=== PATIENT | female | born 1940 | race Caucasian/White ===

== ENCOUNTER → 2023-09-13 11:13 | Outpatient (REF) | payer MEDICARE, BC, SELFPAY | LOC: WDC 11:13 | PROVIDERS: ATTENDING PHYSICIAN Family Medicine | DX: Z12.31 Encounter for screening mammogram for malignant neoplasm of breast (principal) | CPT/HCPCS: 77063; 77067 ==

== ENCOUNTER → 2023-09-17 09:44 | Outpatient (REF) | payer MEDICARE, BC, SELFPAY | LOC: RAD 09:44 | PROVIDERS: ATTENDING PHYSICIAN Family Medicine | DX: R74.8 Abnormal levels of other serum enzymes (principal) | CPT/HCPCS: 76700 ==

== ENCOUNTER → 2023-11-23 13:53 | Outpatient (REF) | payer MEDICARE, BC, SELFPAY | LOC: RAD 13:53 | PROVIDERS: ATTENDING PHYSICIAN Orthopaedic Surgery; FAMILY PHYSICIAN Family Medicine | DX: I97.89 Other postprocedural complications and disorders of the circulatory system, not elsewhere classified (principal); I82.401 Acute embolism and thrombosis of unspecified deep veins of right lower extremity; R60.0 Localized edema | CPT/HCPCS: 93971 ==

== ENCOUNTER 2024-04-16 10:18 | Outpatient (RCR) | payer MEDICARE, BC, SELFPAY | END 2024-04-16 23:59 | disposition home or self-care (01) | LOC: RPT 10:18 | PROVIDERS: ATTENDING PHYSICIAN Family Medicine | DX: I89.0 Lymphedema, not elsewhere classified (principal); Z73.6 Limitation of activities due to disability | CPT/HCPCS: 97163; 97535; 97760 ==

== ENCOUNTER 2024-06-06 08:50 | Outpatient (RCR) | payer MEDICARE, BC, SELFPAY | END 2024-06-06 23:59 | disposition home or self-care (01) | LOC: RPT 08:50 | PROVIDERS: ATTENDING PHYSICIAN Family Medicine | DX: I89.0 Lymphedema, not elsewhere classified (principal); Z73.6 Limitation of activities due to disability | CPT/HCPCS: 97140; 97535; 97760 ==

== ENCOUNTER 2024-07-04 10:45 | Outpatient (RCR) | payer MEDICARE, BC, SELFPAY | END 2024-07-04 23:59 | disposition home or self-care (01) | LOC: RPT 10:45 | PROVIDERS: ATTENDING PHYSICIAN Family Medicine | DX: I89.0 Lymphedema, not elsewhere classified (principal); Z73.6 Limitation of activities due to disability | CPT/HCPCS: 97140; 97535 ==

== ENCOUNTER 2024-08-08 12:59 | Outpatient (RCR) | payer MEDICARE, BC, SELFPAY | END 2024-08-11 07:28 | disposition home or self-care (01) | LOC: RPT 12:59 | PROVIDERS: ATTENDING PHYSICIAN Family Medicine | DX: I89.0 Lymphedema, not elsewhere classified (principal); Z73.6 Limitation of activities due to disability | CPT/HCPCS: 97140; 97535 ==

== ENCOUNTER → 2024-10-24 14:46 | Outpatient (REF) | payer MEDICARE, BC, SELFPAY | LOC: WDC 14:46 | PROVIDERS: ATTENDING PHYSICIAN Family Medicine | DX: Z12.31 Encounter for screening mammogram for malignant neoplasm of breast (principal) | CPT/HCPCS: 77063; 77067 ==

== ENCOUNTER → 2024-11-19 11:21 | Outpatient (REF) | payer MEDICARE, BC, SELFPAY | LOC: RAD 11:21 | PROVIDERS: ATTENDING PHYSICIAN Internal Medicine Rheumatology; FAMILY PHYSICIAN Family Medicine | DX: M06.4 Inflammatory polyarthropathy (principal); M15.9 Polyosteoarthritis, unspecified | CPT/HCPCS: 73110; 73130 ==

== ENCOUNTER → 2024-11-27 10:18 | Outpatient (REF) | payer MEDICARE, BC, SELFPAY | LOC: RAD 10:18 | PROVIDERS: ATTENDING PHYSICIAN Internal Medicine Rheumatology; FAMILY PHYSICIAN Family Medicine | DX: M81.0 Age-related osteoporosis without current pathological fracture (principal) | CPT/HCPCS: 77080; 77081 ==

== ENCOUNTER 2024-12-05 16:22 | Inpatient (IN) | payer MEDICARE, BC, SELFPAY ==
[2024-12-05 11:13] VITALS: BP 175/75
[2024-12-05 11:59] LABS: Hematocrit 38.6 % (37.0-47.0); Hemoglobin 13.2 g/dL (12.0-16.0); Mean Corp Hgb Conc. 34.2 g/dL (33.0-37.0); Mean Corpuscular Volume 92.1 fL (81.0-99.0); Nucleated Red Blood Cells % 0 %; Platelet Count 222 10^3/uL (130-400); Red Cell Dist. Width 14.1 % (11.5-14.5)
[2024-12-05 12:11] LABS: ALT (SGPT) 22 U/L (0-35); AST (SGOT) 37 U/L (14-36); Albumin 4.1 g/dl (3.5-5.0); Alkaline Phosphatase 113 U/L (38-126); Blood Urea Nitrogen 16 mg/dl (7-17); Calcium 9.1 mg/dl (8.4-10.2); Carbon Dioxide 27 mmol/L (22-30); Chloride 105 mmol/L (98-107); Glucose 102 mg/dl (70-99); Potassium 4.7 mmol/L (3.5-5.1); Sodium 138 mmol/L (135-145); Total Protein 6.7 g/dl (6.3-8.2); eGFR > 60.00
--- NOTE | 2024-12-05 12:47 | ED.GENMED ---
History of Present Illness
General
Chief Complaint: Skin Problem
Source: patient
Exam Limitations: none
Time Seen by Provider: 12/05/24 12:26
Nursing documentation reviewed up to this point in time: agreed with
History of Present Illness
History of Present Illness:
Patient as documented is an 84-year-old female with past medical history of chronic lymphedema, reflux presents to the ER for evaluation. She has had cellulitis to the right lower extremity for the past week and has been taking Keflex without
relief she was sent by her family doctor.
She denies any fever chills she does complain of bilateral chronic lymphedema and swelling in both legs.
Past History
Past History
ED Past Medical History: Other (Fibermyalgia)
ED Past Surgical History: Gynecological (Hysterectomy)
Social History
Tobacco: Non-smoker
Alcohol: None
Personal:
Living: with family
Phy Exam
General Physical Exam
General Presentation: no apparent distress
General age: appears stated age
General Skin: warm and dry
General Habitus: normal
General Mental: alert
General Hydration: appears well hydrated
Cardiovascular Exam
Cardiovascular Exam: regular rate/rhythm, no murmur and normal peripheral pulses
Pulmonary Exam
Pulmonary Exam: lungs clear and no respiratory distress
Musculoskeletal Exam
Musculoskeletal Exam: full ROM and other (rle with strong pulses + circumferential erythema to right lower leg with swelling there is redness that extends up to the medial /proximal thigh)
Skin Exam
Skin Exam: normal color and warm/dry
Psychiatric Exam
Psychiatric Exam: normal mood/affect
Course
Orders/Labs/Results
Orders:
Orders
12/05/24 11:43
Complete Blood Count/With Diff Urgent
Comprehensive Metabolic Panel Urgent
12/05/24 12:49
Venous Doppler Lwr Ext Bilat [US Periph Venous LOWER Ext Adalid] Urgent
Comment:
Reason For Exam: chronic edema right leg cellulitis
12/05/24 13:03
Lactic Acid Q4H
Comment: CANCEL 2nd LACTIC ACID IF 1st LACTIC ACID IS LESS THAN 2
Blood Culture Q30M
ANALI Source: Blood/Venous
Specimen Description:
Blood Culture Q30M
ANALI Source: Blood/Venous
Specimen Description:
12/05/24 Dinner
Regular
At Your Request: Full Participation
Does patient need a safe tray?: No
12/05/24 16:01
Admit/Transfer Patient As Directed
Co-Sign Provider:
Level of Care: Inpatient admission
Assign to:: Medical/Surgical
Physician / Group: Hospitalist
Diagnosis: Cellulitis
Reason for Hospitalization: Cellulitis
Expected length of stay greater than two midnights?: Yes
ELOS- Estimated Length of Stay in days: 3
I certify the patient meets the requirements for IP care: Yes
PRN Pain Medication Management As Directed
May give lesser potent ordered pain med per pt: Yes
preference::
Protocol:: Medication orders for pain may be administered in a
manner that supports deferring to patient preference
when the pt is:
- Requesting an ordered lesser potent pain medication.
Least to most potent pain medications are defined
as: acetaminophen < NSAID < tramadol < opioids
(morphine, oxycodone, hydromorphone).
- Requesting a lesser dose of the same medication IF
ORDERED.
- Requesting a less intrusive route of administration
if both routes are prescribed by the provider (PO <
IV).
12/05/24 16:02
Code Status As Directed
Resuscitation Status: Full Code
12/05/24 17:30
Acetaminophen [Tylenol] 650 mg PO Q4HPRN PRN
Bisacodyl [Dulcolax] 10 mg RECTAL [id number] PRN
Docusate W/Senna [Senokot-S] 1 tablet PO BIDPRN PRN
Polyethylene Glycol Powder [Miralax] 17 grams PO DAILYPRN PRN
Vancomycin [Vancocin] 1,500 mg 0.9% Sodium Chloride 500 ml [Nss] 500 ml IV NOW
12/05/24 17:30
Activity As Directed
Activity Level: With Assistance
Pneumatic Compression Sleeves As Directed
Type: Knee high
Comment: left leg only
Vital Signs As Directed
Frequency: Per unit guidelines
DX Deep Vein Thrombosis Video Routine
12/06/24 06:00
Basic Metabolic Panel IN AM
Complete Blood Count/No Diff IN AM
Abnormal Lab Results
12/05/24
11:43
RBC 4.19 L 10^6/uL
(4.20-5.40)
MCH 31.5 H pg
(27.0-31.0)
MPV 11.4 H fL
(7.4-10.4)
Absolute Monos (auto) 0.9 H 10^3/uL
(0.1-0.6)
Monocytes % 12.6 H %
(1.7-9.3)
Glucose 102 H mg/dl
(70-99)
AST 37 H U/L
(14-36)
12/05/24 11:43
12/05/24 11:43
Vital Signs
Initial and Last Documented VS:
Initial Vital Signs
Temp Pulse Resp BP Pulse Ox
98.8 F 74 16 175/75 98
12/05/24 11:13 12/05/24 11:13 12/05/24 11:13 12/05/24 11:13 12/05/24 11:13
Last Documented Vital Signs
Temp Pulse Resp BP Pulse Ox
98.0 F 72 18 173/65 99
12/05/24 17:48 12/05/24 17:48 12/05/24 17:48 12/05/24 17:48 12/05/24 17:48
MDM/Problems Addressed
Differential Diagnosis Includes:
Not limited to cellulitis, failed outpatient
MDM/Problems Addressed:
Patient with chronic lymphedema presents with worsening cellulitis of right leg despite Keflex for 1 week. Patient is in no acute distress however does have obvious redness circumferential to the right lower leg which extends up her thigh.
Ultrasound ordered and pending. nml wbc no fever . will require iv antibx. IV vancomycin ordered
Chronic conditions affecting care:
Chronic lymphedema
*Radiology
Radiology exam reviewed: radiology read reviewed
*Pulse Oximetry
SaO2: 98
Oxygen Mode of Delivery: Room air
Patient hypoxic: no
*Critical Care Note
Total Time (30-74mins, 75-104mins- exclusive of procedures): Not Applicable
ED Attending Note
-
Portions of this chart may have been created with voice recognition software.� Occasional wrong word or��sound alike� substitutions may have occurred due to the inherent limitations of voice recognition software.
Discharge Plan
Departure
Patient Disposition: Admit
Date of Disposition: 12/05/24
Time of Disposition: 14:14
Admit to: Med/Surg
Admit to doctor: hospitalist
Presentation/result/management discussed w/ accepting MD/DO: Hospitalist
Patient with high blood pressure during this ER visit?: Yes
Condition: Fair
Covid-19: Not Applicable
Discharge Problem:
Cellulitis of leg, right
Interventions
Interventions:
*Risk Screen - Suicide Last Done: 12/05/24 11:17
*ED COVID-19 Vaccine History Last Done: 12/05/24 18:29
*Nursing Disposition Last Done: 12/05/24 17:24
ED-Skin Assessment Last Done: 12/05/24 13:12
Discharge Date and Time
Discharge Date/Time: 12/05/24 17:41
--- NOTE | 2024-12-05 14:54 | PHANOTE ---
med rec note- patient only wants to take her vitamins and not the hospital. she will have them brought in but will not tell me what they are
--- NOTE | 2024-12-05 15:39 | HPS.HSE ---
Family Physician
-
Family Physician: Raffaele Kellogg Jr.
Chief Complaint
-
red swollen leg
History of Present Illness
84-year-old woman with past medical history of chronic lymphedema, reflux, presents with cellulitis to the right lower extremity. For the past week she has been taking Keflex without relief she was sent by her family doctor.
She denies any fever chills she does complain of bilateral chronic lymphedema and swelling in both legs. Her right leg is red, swollen and hot. US does not show a DVT. She has alelrgies to penicillin and doxycycline, has tolerated keflex and has
never taken vanco.
Medical History
Past Medical History
Past Medical History: Reports Other
Additional Past Medical History:
Fibromyalgia
Hysterectomy
Acute Pancreatitis
Fibromyalgia
Abnormal Liver Function Test
Progressive peripheral neuropathy
lymphedema
Vaginal childbirth x2
[place] tooth extraction
Past Surgical History: Reports Other
Additional Past Surgical History:
See above
Social History
Tobacco: Non-smoker
Alcohol: None
Drug: None
Personal:
Living: With Family
Employment: Retired
Family History
Family History: Not pertinent
Allergies / Home Medications
Allergies reflects when Allergies were last updated in [employer]
Home Medications with original date entered in [employer]
Allergy/Medication List:
Allergies
Allergy/AdvReac Type Severity Reaction Status Date / Time
amitriptyline (From Elavil) Allergy Hives Verified 12/05/24 11:12
codeine (Codeine) Allergy dizzy Verified 12/05/24 11:12
diphenhydramine HCl (From Allergy Hives Verified 12/05/24 11:12
Benadryl)
fexofenadine (From Analy) Allergy dizzy Verified 12/05/24 11:12
furosemide (From Lasix) Allergy low BP, Verified 12/05/24 11:12
fainting
gabapentin Allergy low BP, Verified 12/05/24 11:12
fainting
ketoprofen Allergy paraparesis Verified 12/05/24 11:12
Latex, Natural Rubber Allergy Rash Verified 12/05/24 11:17
naproxen (From Aleve) Allergy extreme Verified 12/05/24 11:12
intestinal
pain
Penicillins Allergy Hives Verified 12/05/24 11:12
rofecoxib (From Vioxx) Allergy SOB, Verified 12/05/24 11:12
irregular
Heart beat
spironolactone Allergy low BP, Verified 12/05/24 11:12
fainting
chlorathmatine Allergy lock jaw Uncoded 12/05/24 11:12
synthetic vitamin D Allergy Anaphylaxis Uncoded 12/05/24 11:12
vibromycine Allergy Anaphylaxis Uncoded 12/05/24 11:12
Home Medications
cephalexin 500 mg capsule 500 mg PO QID 12/05/24
(med list needs to be reviewed again, this seems improbable)
Review of Systems
-
History Source: Patient
A 12 point ROS was completed and negative except as noted: Yes
Physical Exam
Vital Signs
Vital Signs
Temp Pulse Resp BP Pulse Ox
98.8 F 74 16 175/75 98
12/05/24 11:13 12/05/24 11:13 12/05/24 11:13 12/05/24 11:13 12/05/24 12:49
Physical Exam
General: Well Developed, Well Nourished, No Apparent Distress and Comfortable
HEENT: Nose Appears Normal and Ears Appear Normal
Respiratory: Clear
Cardiac: S1/S2 and Regular Rhythm
GI: Soft, Non Tender and Non Distended
Musculoskeletal: No Clubbing, No Cyanosis and No Edema
Skin: Warm and Dry
Neuro: Awake, Alert, Oriented and AO x 3
Psych: Calm
Laboratory Results
-
12/05/24 11:43
12/05/24 11:43
Laboratory Results
Lactic Acid Cancelled 12/05/24 17:00
Total Bilirubin 0.7 mg/dl (0.2-1.3) 12/05/24 11:43
AST 37 U/L (14-36) H 12/05/24 11:43
ALT 22 U/L (0-35) 12/05/24 11:43
Alkaline Phosphatase 113 U/L (38-126) 12/05/24 11:43
Data Reviewed
-
Lab Data: Labs Reviewed by me
Impression/Plan
-
IMPRESSION:
84 woman with cellulitis, who failed outpatient keflex. No DVT on US
PLAN:
1. Cellulitis.
IV vancomycin
Make determination on day 3, to see if responding well (there is often a lag of 2-3 days before results are seen)
2. No meds on med list. Improbable.
Review med list when she is settled
Full code
VCD on non-affected leg for DVTp
[2024-12-05 16:04] VITALS: BP 164/67
[2024-12-05 17:48] VITALS: BP 173/65
[2024-12-05 17:52] VITALS: BMI 25.4
--- NOTE | 2024-12-05 18:12 | PHA.VAN.IN ---
Assessment
- Assessment
Renal Function: Appears similar to baseline
Maximum Temperature: 98.8
Minimum Temperature: 98
AUC Dosing Plan
- Dosing Variables
Dosing Weight (kg): 60.95
Dosing CrCl (ml/min): 47
Vd coefficient (L/kg): 0.7
- Empiric Dosing
Initial / Loading Dose: 1500mg on 12/05
Maintenance Regimen: 750mg Q24H starting on 12/06
Estimated AUC (mcg*h/mL): 414
Estimated Peak (mcg*h/mL): 27.2
Estimated Trough (mcg/ml): 10
Estimated Half Life (H): 16
- Monitoring
No levels ordered at this time: Consider levels in next few days
Pharmacokinetics Vancomycin I
- -
Patient Age: 84
Patient Sex: Female
Vancomycin Day #: 1
Indication: Skin And Soft Tissue
Requesting Provider: Yue Red
Pertinent Antimicrobial Allergies:
Penicillins, doxycycline
Height / Weight:
Height 5 ft 1 in
Actual Weight 60.951 kg
- Vital Signs / Lab Results
Temp Pulse Resp BP Pulse Ox
98.0 F 72 18 173/65 99
12/05/24 17:48 12/05/24 17:48 12/05/24 17:48 12/05/24 17:48 12/05/24 17:48
Lab Results - Hematology
12/05/24
11:43
WBC 7.2
Lab Results - Chemistry
12/05/24
11:43
BUN 16
Creatinine 0.7
Albumin 4.1
12/05/24 12/05/24
13:03 17:00
Lactic Acid 0.8 Cancelled
--- NOTE | 2024-12-05 18:14 | PTCARENOTE ---
pt arrived to unit at 1730 via stretcher from ED. pt ambulated from hallway to bed with RW and standby assist. BP elevated at 173/65, other VSS. awaiting vanco from pharmacy. pt oriented to room/unit, regular diet order completed, call bowens in reach.
[2024-12-05] MEDS: VANCOCIN 530 MG IV (18:17)
[2024-12-05 19:27] VITALS: BP 144/65
[2024-12-05 23:21] VITALS: BP 136/54
[2024-12-06 06:57] LABS: Hematocrit 35.7 % (37.0-47.0); Hemoglobin 12.0 g/dL (12.0-16.0); Mean Corp Hgb Conc. 33.6 g/dL (33.0-37.0); Mean Corpuscular Volume 93.2 fL (81.0-99.0); Platelet Count 206 10^3/uL (130-400); Red Cell Dist. Width 13.9 % (11.5-14.5)
[2024-12-06 07:16] LABS: Blood Urea Nitrogen 15 mg/dl (7-17); Calcium 8.4 mg/dl (8.4-10.2); Carbon Dioxide 27 mmol/L (22-30); Chloride 107 mmol/L (98-107); Estimated Creatinine Clearance 47 ml/min; Glucose 103 mg/dl (70-99); Potassium 4.2 mmol/L (3.5-5.1); Sodium 138 mmol/L (135-145); eGFR > 60.00
--- NOTE | 2024-12-06 07:18 | W.PN.HOSP.TC ---
Addendum entered and electronically signed by Nasim Gipson MD 12/06/24 12:53:
RLE cellulitis, nonpurulent
-Improved on vancomycin
-Failed outpatient Keflex or did not receive enough of the dose
-Follow vanc trough and dose per Pharmacy
-Follow up on blood cultures
-ID consult
Chronic lymphedema
-Outpatient lymphedema follow up
Original Note:
Today's Communication/Plan
-
Continue IV Vanco
Assessment / Plan
Assessment / Plan
Assessment/plan
#Right lower extremity cellulitis
#History of bilateral chronic lymphedema
-Failed outpatient Keflex therapy x 6 days
-Allergies to penicillin, doxycycline noted on chart
-Vascular ultrasound with no evidence for DVT
-Initiated on IV vancomycin
-MRSA screening
-Blood cultures were obtained in the ED, currently pending
-Monitor for fevers, temperature
-Elevate leg, Jesus wrap, vesna area of cellulitis to monitor for improvement
CODE STATUS full code
DVT prophylaxis SCD on unaffected leg
Obtained further history from patient. Patient denies home medication use at this time except Keflex. She reports she was on a course of prednisone taper for the past 2 years for chronic lymphedema and was just tapered off medication 2 weeks ago.
She reports 3 episodes of cellulitis with recent Keflex use as at last week. Reports cellulitis started 6 days ago, she has been taking Keflex without improvement in symptoms. Her PCP recommended she comes in for IV antibiotics
Anticipated Discharge: 24 - 48 hours
Subjective/Interval History
-
Patient seen and examined at bedside. Reports significant improvement in cellulitis.
Obtained further history from patient. Patient denies home medication use at this time except Keflex. She reports she was on a course of prednisone taper for the past 2 years for chronic lymphedema and was just tapered off medication 2 weeks ago.
She reports 3 episodes of cellulitis with recent Keflex use as at last week. Reports cellulitis started 6 days ago, she has been taking Keflex without improvement in symptoms. Her PCP recommended she comes in for IV antibiotics
Objective Data
-
Labs:
Laboratory Results
12/06/24
06:35
WBC 5.5
Hgb 12.0
Hct 35.7 L
Plt Count 206
Sodium 138
Potassium 4.2
Chloride 107
Carbon Dioxide 27
BUN 15
Creatinine 0.7
Glucose 103 H
Calcium 8.4
Vital Signs:
Vital Signs
Temp Pulse Resp BP Pulse Ox
98.0 F 77 18 136/54 93
12/05/24 23:21 12/05/24 23:21 12/05/24 23:21 12/05/24 23:21 12/05/24 23:21
I&O
12/05/24 12/06/24 12/07/24
06:59 06:59 06:59
Intake Total 240 / 240
Balance 240 / 240
Review of Systems
-
All other systems: Reviewed and negative (Except as documented)
Physical Exam
-
General: Well Developed, Well Nourished and No Apparent Distress
Respiratory: Clear to Auscultation
Cardiac: Regular Rhythm and S1/S2
GI: Soft, Nontender, Nondistended and Normal Bowel Sounds
Musculoskeletal: Edema, Right Lower Extrem
Skin: Other (Right lower extremity with mild erythema, swelling more prominent in toes.)
Neuro: AO x 3
Psych: Calm
[2024-12-06 07:40] VITALS: BP 130/55
--- NOTE | 2024-12-06 09:30 | PHA.VAN.FU ---
Vancomycin Assessment / Plan
- Assessment
Renal Function: Stable
WBC's are: WNL
In the past 24 hrs, patient has been: Afebrile
- Dosing Plan
Continue: 750MG Q24H
- Monitoring Plan
No level(s) ordered at this time: Consider levels in next few days
- Follow Up
Pharmacy will continue to follow.
Vancomycin Follow UP
- -
Patient Age: 84
Patient Sex: Female
Vancomycin Day #: 2
Indication: Skin And Soft Tissue
Requesting Provider: Yue Red
Pertinent Antimicrobial Allergies:
Penicillins, doxycycline
Height / Weight:
Height 5 ft 1 in
Actual Weight 60.951 kg
- Vital Signs / Lab Results
Temp Pulse Resp BP Pulse Ox
97.4 F 60 20 130/55 100
12/06/24 07:40 12/06/24 07:40 12/06/24 07:40 12/06/24 07:40 12/06/24 07:40
Lab Results - Hematology
12/05/24 12/06/24
11:43 06:35
WBC 7.2 5.5
Lab Results - Chemistry
12/05/24 12/06/24
11:43 06:35
BUN 16 15
Creatinine 0.7 0.7
Estimated Creat Clear 47
Albumin 4.1
12/05/24 12/05/24
13:03 17:00
Lactic Acid 0.8 Cancelled
[2024-12-06] MEDS: VANCOCIN 150 IV (12:04)
--- NOTE | 2024-12-06 12:50 | CON.ID ---
Consultation
-
Date/Time Consultation Requested: December 06, 2024 0908
Date/Time Consultation Performed: December 06, 2024 1250
Requesting Provider: Dr. Nasim Gipson
Performing Provider: Dr. Shefali Spann
Reason for Consultation: RLE Cellulitis
Chief Complaint / Past History
Chief Complaint
Right leg swelling and redness
History of Present Illness
84-year-old female with history of lymphedema, neuropathy who presented to the ER on December 05 for right leg redness. About a week ago, she developed swelling from the right foot up to the knee with associated erythema. She saw her primary care
physician who placed her on cephalexin 250 mg p.o. every 6 hours. Cephalexin dose was halved due to prior history of dizziness on the 500 mg dose. Patient did not improve and therefore she was instructed to come to the ER. She was given IV
vancomycin in the ER and 1 dose this morning. The erythema did significantly improve after the IV vancomycin this morning. However erythema has returned. The swelling has improved. She noted itchy bumps on her right ragland today. Also has
phlebitis of the right upper arm from peripheral IV. She denies fevers or chills. She is compliant with using wrap compression at home. This is her third episode of right leg cellulitis over the past 3 years.
Past History
Additional Past Medical History:
Peripheral neuropathy
Bilateral extremity lymphedema, uses wrap compression
Right lower extremity cellulitis
Fibromyalgia
History of pancreatitis
Hysterectomy
Right hip replacement
Allergy History:
amitriptyline (From Elavil) Allergy (Verified 12/05/24 11:12)
Hives
codeine (Codeine) Allergy (Verified 12/05/24 11:12)
dizzy
diphenhydramine HCl (From Benadryl) Allergy (Verified 12/05/24 11:12)
Hives
fexofenadine (From Analy) Allergy (Verified 12/05/24 11:12)
dizzy
furosemide (From Lasix) Allergy (Verified 12/05/24 11:12)
low BP, fainting
gabapentin Allergy (Verified 12/05/24 11:12)
low BP, fainting
ketoprofen Allergy (Verified 12/05/24 11:12)
paraparesis
Latex, Natural Rubber Allergy (Verified 12/05/24 11:17)
Rash
naproxen (From Aleve) Allergy (Verified 12/05/24 11:12)
extreme intestinal pain
Penicillins Allergy (Verified 12/05/24 11:12)
Hives
rofecoxib (From Vioxx) Allergy (Verified 12/05/24 11:12)
SOB, irregular Heart beat
spironolactone Allergy (Verified 12/05/24 11:12)
low BP, fainting
chlorathmatine Allergy (Uncoded 12/05/24 11:12)
lock jaw
synthetic vitamin D Allergy (Uncoded 12/05/24 11:12)
Anaphylaxis
doxycycline/vibromycine Allergy (Uncoded 12/05/24 11:12)
Anaphylaxis
Medications Reviewed: Yes
Current Antibiotics:
Vancomycin
Social History
Tobacco: Non-Smoker
Alcohol: None
Drug: None
Personal:
Living: With Family
Family History
Family History: Not Pertinent
Review of Systems
Review of Systems
General: Negative Fever, Chills or Change in Appetite
Cardiovascular: Negative Chest Pain or Dyspnea
Respiratory: Negative Dyspnea or Cough
Gasteroenterology: Negative Nausea, Vomiting or Diarrhea
Genital / Urological: Negative Dysuria or Flank Pain
Endocrine: Negative Weakness
Neurological: Negative Dizziness
All systems: All other systems were reviewed and were negative
Vital Signs
Temp Pulse Resp BP Pulse Ox
97.4 F 60 20 130/55 100
12/06/24 07:40 12/06/24 07:40 12/06/24 07:40 12/06/24 07:40 12/06/24 07:40
Physical Exam
Physical Exam
Constitutional: No Acute Distress and Comfortable
Eyes: No Conjunctival Hemorrhage and Sclera Anicteric
Cardiovascular: Regular Rate and S1/S2
Pulmonary: Clear
Gastrointestinal: Soft, Non Tender, Non Distended and Normal Bowel Sounds
Genito-Urinary: Negative CVA Tenderness
Extremities: Edema (RLE > LLE) and Erythema (Erythema from right foot to i/2 way up the ragland, did not resolve with leg elevation)
Skin: Rash (right ragland: small areal with red papular lesions, puritic)
Neurological: AO x 3
Lines: PIV (Above right antecubital fossa at previous PIV site mild induration and erythema)
Lab / Diagnostic Study Results
12/06/24 06:35
12/06/24 06:35
Abs Immat Gran (auto) 0.0 10^3/uL (0-0.05) 12/05/24 11:43
Absolute Neuts (auto) 4.4 10^3/uL (1.4-6.5) 12/05/24 11:43
Absolute Lymphs (auto) 1.6 10^3/uL (1.2-3.4) 12/05/24 11:43
Absolute Monos (auto) 0.9 10^3/uL (0.1-0.6) H 12/05/24 11:43
Absolute Basos (auto) 0.0 10^3/uL (0-0.2) 12/05/24 11:43
Immature Gran % 0.1 % (0-0.5) 12/05/24 11:43
Neutrophils % 61.4 % (42.2-75.2) 12/05/24 11:43
Lymphocytes % 22.5 % (20.5-51.1) 12/05/24 11:43
Monocytes % 12.6 % (1.7-9.3) H 12/05/24 11:43
Eosinophils % 2.8 % (0-6) 12/05/24 11:43
Basophils % 0.6 % (0-2) 12/05/24 11:43
Lactic Acid Cancelled 12/05/24 17:00
Microbiology Results
Micro:
12/06/24 08:07 MRSA Screen - Pending
Nose
12/05/24 13:03 Blood Culture - Pending
Blood/Venous
12/05/24 13:03 Blood Culture - Pending
Blood/Venous
12/05/24 Peripheral Vascular US: Negative for bilateral lower extremity deep venous thrombosis.
Assessment / Plan
# R LE cellulitis, s/p 6 days outpt cephalexin 250, qid
# BLE lymphedema
# New Pruritic dermatitis RLE
# RUE pIV site phlebitis
# Allergy to PCN, doxycycline. Intolerant to higher dose of cephalexin 500mg.
- Apply topical 1% hydrocortisone ointment to puritic rash
- Foot to knee high compression
- Elevate LE
- DC IV Vancmycin.
- Start po linezolid 600mg bid.
[2024-12-06] MEDS: HYDROCORTISONE 1% OINTMENT 1 APPLIC TOPICAL ×2 (15:04→20:19)
[2024-12-06 16:03] VITALS: BP 152/68
[2024-12-06] MEDS: ZYVOX 600 MG PO (20:19)
--- NOTE | 2024-12-06 22:30 | PTCARENOTE ---
Addendum entered by Rochelle Cassidy RN 12/07/24 04:02:
Pt with 5/5 strength in arms and legs. Able to fully lift all extremities.
Original Note:
Pt started on oral Zyvox tonight. This RN administered medication at 2018. Pt expressed feeling fine until 2229. Pt hysterically crying in the room stating, 'I can't move my arms or legs. It feels like I am floating and I am not here. My legs hurt
and feel like cement. I have had so many bad reactions to medicine it must have been the new pill I took.' Pt able to move arms and legs despite complaints. EDILBERTO Anglin notified and came to bedside to assess patient. Pt very anxious. FEATHERER
and this RN discussed taking something for anxiety with patient. Pt stating, 'I will not take anything for anxiety. I know I am having an allergic reaction to the med.' Pt continuing to present this RN with conflicting information regarding her
history with episodes like this. Pt asked to get up to walk to bathroom and threw herself onto bed stating she could not walk. Discussed with FEATHERER. Will have patient use bedpan throughout the night due to weakness. Plan of care ongoing.
[2024-12-06 22:53] VITALS: BP 150/71
[2024-12-07 05:50] LABS: Hematocrit 37.3 % (37.0-47.0); Hemoglobin 12.8 g/dL (12.0-16.0); Mean Corp Hgb Conc. 34.3 g/dL (33.0-37.0); Mean Corpuscular Volume 91.2 fL (81.0-99.0); Platelet Count 215 10^3/uL (130-400); Red Cell Dist. Width 13.8 % (11.5-14.5)
[2024-12-07 06:10] LABS: Blood Urea Nitrogen 15 mg/dl (7-17); Calcium 9.1 mg/dl (8.4-10.2); Carbon Dioxide 27 mmol/L (22-30); Chloride 106 mmol/L (98-107); Estimated Creatinine Clearance 47 ml/min; Glucose 123 mg/dl (70-99); Potassium 4.2 mmol/L (3.5-5.1); Sodium 139 mmol/L (135-145); eGFR > 60.00
--- NOTE | 2024-12-07 06:22 | PTCARENOTE ---
Pt without any complaints. Walking around unit with rolling walker. Steady gait. Plan of care ongoing.
[2024-12-07 07:31] VITALS: BP 141/65
--- NOTE | 2024-12-07 07:53 | W.PN.HOSP.TC ---
Addendum entered and electronically signed by Nasim Gipson MD 12/07/24 13:16:
rle cellulitis
-started on vanc, transitioned to zyvox
-did not tolerate zyvox well, states made her feel strange
-ID okay with Ancef and then dc with Keflex 500mg QID, start 1st dose 8hours after ancef
-dc home
Original Note:
Today's Communication/Plan
-
See A/P
Assessment / Plan
Assessment / Plan
Assessment/plan
#Right lower extremity cellulitis
#History of bilateral chronic lymphedema
-Failed outpatient Keflex therapy x 6 days
-Allergies to penicillin, doxycycline noted on chart
-Vascular ultrasound with no evidence for DVT
-Initiated on IV vancomycin on presentation. Received x 2 doses
-ID input appreciated, transitioned to linezolid 600 mg twice daily.
-Reported reaction after 1 dose of linezolid
-Given improvement of symptoms, will give 1 dose Ancef now, start Keflex outpatient 500 mg 4 times daily for 10 days
-MRSA negative
-Blood cultures obtained in the ED, preliminary negative
-Monitor for fevers, temperature
-Elevate leg, Jesus wrap, vesna area of cellulitis to monitor for improvement
#?Drug reaction to linezolid
-Likely factitious vs true drug reaction
-Will DC linezolid
-Switch to Keflex, with plan as above
CODE STATUS full code
DVT prophylaxis SCD on unaffected leg
Anticipated Discharge: Within 24 hours
Subjective/Interval History
-
Patient seen and examined at bedside. Patient reports reaction to linezolid last night after administration. Reviewed RN notes. Physical exam today with no concern for muscular weakness. Laying in bed, in no acute distress
Objective Data
-
Labs:
Laboratory Results
12/07/24
05:11
WBC 7.4
Hgb 12.8
Hct 37.3
Plt Count 215
Sodium 139
Potassium 4.2
Chloride 106
Carbon Dioxide 27
BUN 15
Creatinine 0.7
Glucose 123 H
Calcium 9.1
Vital Signs:
Vital Signs
Temp Pulse Resp BP Pulse Ox
98.4 F 81 22 141/65 98
12/07/24 07:31 12/07/24 07:31 12/07/24 07:31 12/07/24 07:31 12/07/24 07:31
I&O
12/06/24 12/07/24 12/08/24
06:59 06:59 06:59
Intake Total 240 / 240 1680 / 1680
Balance 240 / 240 1680 / 1680
Review of Systems
-
All other systems: Reviewed and negative (Except as documented)
Physical Exam
-
General: Well Developed, Well Nourished and No Apparent Distress
Respiratory: Clear to Auscultation
Cardiac: Regular Rhythm and S1/S2
GI: Soft, Nontender, Nondistended and Normal Bowel Sounds
Musculoskeletal: Edema, Right Lower Extrem
Skin: Other (Right lower extremity with mild erythema)
Neuro: AO x 3
Psych: Calm
[2024-12-07] MEDS: HYDROCORTISONE 1% OINTMENT 1 APPLIC TOPICAL (08:11)
[2024-12-07] MEDS: ZYVOX PO (08:22)
--- NOTE | 2024-12-07 11:12 | W.PN.ID1 ---
Date of Service
Date of Service: December 07, 2024
Today's Communication
Can give cefazolin ig IV x 1 then dc home on cephalexin 500mg po qid x 6 more days.
Assessment / Plan
# R LE cellulitis (s/p 6 days outpt cephalexin 250, qid), resolving
# BLE lymphedema sclreosis
# New Pruritic dermatitis RLE
# RUE pIV site phlebitis
# Allergy to PCN, doxycycline. Intolerant to higher dose of cephalexin 500mg.
- Apply topical 1% hydrocortisone ointment to puritic rash
- Foot to knee high compression
- Elevate LE
- Pt prefers not to take linezolid. She is willing to go back to higher dose of cephalexin.
- Can give cefazolin ig IV x 1 then dc home on cephalexin 500mg po qid x 6 more days.
Chief Complaint
-: Cellulitis
Subjective / Review of Systems
Prefers not to take the linezolid. Not allergic reaction but it didn't sit well with her
Vital Signs / Physical Exam
Vital Signs
Vital Signs
Temp Pulse Resp BP Pulse Ox
98.4 F 81 22 141/65 98
12/07/24 07:31 12/07/24 07:31 12/07/24 07:31 12/07/24 07:31 12/07/24 07:31
Physical Exam
Constitutional: No Acute Distress and Comfortable
Pulmonary: Clear
Extremities: Edema (RLE decreased) and Erythema (RLE decreased)
Neurological: AO x 3
Objective Data
Lab Data
Lab Results
12/07/24 05:11
12/07/24 05:11
Estimated Creat Clear 47 ml/min 12/07/24 05:11
Lactic Acid Cancelled 12/05/24 17:00
Total Bilirubin 0.7 mg/dl (0.2-1.3) 12/05/24 11:43
AST 37 U/L (14-36) H 12/05/24 11:43
ALT 22 U/L (0-35) 12/05/24 11:43
Alkaline Phosphatase 113 U/L (38-126) 12/05/24 11:43
Most recent labs reviewed.
Micro Results:
12/06/24 08:07 MRSA Screen - Final
Nose No Methicillin Resistant Staphylococcus aureus isolated.
12/05/24 13:03 Blood Culture - Preliminary
Blood/Venous No Growth in 24 hours- Final report to follow
12/05/24 13:03 Blood Culture - Preliminary
Blood/Venous No Growth in 24 hours- Final report to follow
12/05/24 Peripheral Vascular US: Negative for bilateral lower extremity deep venous thrombosis.
Care Review
Plan reviewed with: Physician (Dr. Ashley Gipson)
[2024-12-07] MEDS: ANCEF 5 IV (11:37)
--- NOTE | 2024-12-07 13:35 | PTCARENOTE ---
pt with uneventful morning, refused her Zyvox, asking for a different medication. Hospitalist rounded on pt and together it was decided that she would take the IV Ancef instead. Pt received dose without incident. VSS, preparing for discharge today.
[2024-12-07 14:28] VITALS: BP 133/63
--- NOTE | 2024-12-07 14:37 | W.DCSUMMARY ---
Discharge Summary
Discharge Data
Date of Admission: 12/05/24
Date of Discharge: 12/07/24
-
Pending Results: No
Hospital Course
Brief Hospital course; This is an 84-year-old female with past medical history of chronic lymphedema who presented to ER 12/05 complaining of cellulitis to the right lower extremity. Prior to admission, the patient reports she was taking
cephalexin 500 mg p.o. every 6 hours without relief. She noted that cephalexin dose was halved due to prior history of dizziness. Her symptoms did not improve given the lower dose, hence she decided to come to the ED for evaluation. Upon
presentation to the ED, she was evaluated with an ultrasound without evidence of DVT. In the ED, she was initiated on IV vancomycin, blood cultures were ordered, MRSA was ordered. ID was consulted.
On day 2 of hospitalization, her symptoms continue to improve on IV vancomycin. ID initially transitioned her to linezolid 600 mg twice daily. After the first dose of linezolid, patient preferred not to take linezolid. She stated she was willing
to go back to a higher dose of cephalexin. Given her overall improvement of symptoms, negative blood cultures, negative MRSA screening, the patient will be discharged home today. Prior to discharge she was given cefazolin 1 g IV. She will be
discharged home on cephalexin 500 mg p.o. 4 times daily for an additional 6 days.
Discharge Plan
-
Patient Disposition: Home (Routine Discharge)
Discharge Diagnosis/Procedures: Right lower extremity cellulitis
Condition: Fair
Diet: As tolerated
Activity: As tolerated
Referrals:
Raffaele Kellogg Jr., MD [Family Provider, [facility]]
Additional Discharge Medication Instructions: Start cephalexin 500mg po qid x 6 more days. First dose today 12/07 at 8pm
Prescriptions:
New
cephalexin 500 mg capsule
500 mg PO QID 6 Days Qty: 24 0RF
Discontinued
cephalexin 500 mg Capsule
500 mg PO QID
Rx Instructions:
for 10 days starting 11/28/24
Discharge Orders:
Discharge Patient (As Directed); Ordered 12/07/24
Ordered By: Melva Masters
Discharge Date and Time
Print Language: POLISH
== END 2024-12-07 15:13 | disposition home or self-care (01) | DRG 603 ==
LOC: 3 WEST ACU 16:22
PROVIDERS: Emergency Medicine; Nurse Practitioner; Student in an Organized Health Care Education/Training Program; ADMITTING PHYSICIAN Internal Medicine; ATTENDING PHYSICIAN Hospitalist; CONSULT PHYSICIAN Internal Medicine Infectious Disease; EMERGENCY PHYSICIAN Emergency Medicine; FAMILY PHYSICIAN Family Medicine
DX: L03.115 Cellulitis of right lower limb (principal); I89.0 Lymphedema, not elsewhere classified; I80.8 Phlebitis and thrombophlebitis of other sites; G62.9 Polyneuropathy, unspecified; M79.7 Fibromyalgia; Z90.710 Acquired absence of both cervix and uterus; Z96.641 Presence of right artificial hip joint; Z88.8 Allergy status to other drugs, medicaments and biological substances; Z88.6 Allergy status to analgesic agent; Z91.040 Latex allergy status; Z88.0 Allergy status to penicillin
CPT/HCPCS: 80048; 80053; 83605; 85025; 85027; 87040; 87070; 93970; 99284